=== PATIENT | male | born 1945 | race Caucasian/White ===

== ENCOUNTER → 2017-05-12 | Outpatient (CLI) | payer MEDICARE ==
[~2017-05-12] MED LIST: CARDURA1 MG PO; CEFTIN250 MG/5 M; CLONIDINE HCL0.1 MG PO; COLCRYS0.6 MG PO; CRESTOR10 MG PO; DILTIAZEM 24HR120 M1 PO; DOXAZOSIN MESYLA2 MG PO; ELIQUIS PO; FLOMAX0.4 MG PO; LEVOTHYROXINE88 MCG PO; LISINOPRIL2.5 MG PO; LORAZEPAM0.5 MG PO; MAXZIDE 37.5 M1 EACH PO; METOPROLOL TART50 MG PO; POTASSIUM CHLO10 ME1 PO; ZETIA10 MG PO; ZITHROMAX250 MG; ZOCOR20 MG PO
--- NOTE | 2017-05-20 04:25 | Polysomnography ---
DATE OF STUDY: May 12, 2017 SPLIT NIGHT POLYSOMNOGRAM This is a 71-year-old gentleman with insomnia, gasping awakenings, and cardiac history. Patient has a past medical history of atrial fibrillation, hypertension, dyslipidemia, hypothyroidism, gout, osteoarthritis, anxiety, spinal stenosis, asthma, and allergies. Current medications include diltiazem, doxazosin, potassium, levothyroxine, lorazepam, rosuvastatin, triamterene, hydrochlorothiazide, and Zetia. Patient with BMI of 32.9. [place] sleepiness scale score is 2. Patient presents for diagnostic polysomnogram that is further split into a positive airway pressure titration study. FINDINGS: During diagnostic half of this study, total sleep time of 138.5 minutes with sleep efficiency of 39.3%. Sleep onset latency was achieved in 23.5 minutes. REM not achieved until treatment portion this night. Intermittent snoring was noted. Patient's respiratory rate was noted to be in 30 breaths per minute range. A total of 68 hypopneas with no apnea was noted for apnea hypopnea index of 31.3 events per hour. These events were noted in both supine and side positions. Lowest oxygen saturation was 82% in this portion of the night. Multiple respiratory event related limb movements were noted. This study was split soon after discovering severe obstructive sleep apnea hypopnea syndrome. CPAP was initiated at 4 cm of water pressure and incrementally increased to 5, 6, 7, 8, 9, and 10 cm of water pressure. Patient woke up complaining that the pressure was too high. He was changed to BiPAP, 8/4 cm of water to try to get him to tolerate this better. The patient was fitted with a ResMed Air-fit N10 standard size mask. Using this BiPAP setting of 8/4 cm of water, the apnea hypopnea index of 5.7 events per hour, and the lowest oxygen saturation was 89%. With CPAP of 10 cm of water, the apnea hypopnea index was zero events per hour, and the lowest oxygen saturation was 81%. Due to difficulties tolerating the device and due to the shortened titration time provided by the split night protocol, this was a mildly suboptimal titration. During the entire night, periodic limb movement index of 49 events per hour was noted. The majority of the events were either respiratory related limb movements, although later there were also other periodic limb movements although they did not seem to the destroy or disrupt the sleep architecture or cause a lot of arousals, and were often of low amplitude as they were not seen on camera. Of note, the patient had 2 long awakenings that were initiated from REM sleep. EEG analysis was otherwise unremarkable. Single lead EKG analysis demonstrated an irregular baseline rhythm consistent with atrial fibrillation with heart rate often at 70s to 80s range at baseline. However, they were multiple intervening runs of tachycardia from 2-4 beats often at 110-150 beats per minute. At the end of this night, the patient stated that he had better sleep than his usual night. INTERPRETATION: This was an abnormal polysomnogram/split study due to the presence of: 1. Severe obstructive sleep apnea. This is supported by oxygen desaturations, snoring, and increased apnea hypopnea index. Multiple factors can be contributory, such as obesity, thyroid disease, and structural/obstructive abnormalities in upper airway. An evaluation and management of these factors associated with sleep apnea would be beneficial. 2. Positive airway pressure titration study. This overnight positive airway pressure titration study revealed significant improvement in terms of alleviation of obstructive sleep apnea at the settings utilized above. Of note, this study was limited due to shortened titration time provided by split night protocol, as well as intolerance of higher pressures. Consider to initiate BiPAP with IPAP of 8 cm of water and EPAP of 4 cm of water using a ResMed Air-fit N10 standard size nasal mask interface during sleep. As the patient desensitizes to this therapy, he can be referred back for a 2nd night titration study. Consideration may also be for oxygen overnight testing and device interrogation especially if there is a delay getting the patient back for a 2nd night titration study. 3. Baseline tachypnea. A cardiopulmonary evaluation is warranted. Of note, the patient follows with Dr. Zavala who is also a biosecurity officer. Clinical correlation is recommended. 4. History of insomnia. Clinical decision-making may also incorporate the two awakenings found to occur from REM sleep. Other issues should be investigated as well when evaluating the patient's insomnia, noting that there are other diagnoses found during this sleep test. 5. Periodic limb movements in sleep. Period limb movement index was 49 events per hour throughout this entire night. Most of these events are respiratory effort related limb movements or of low amplitude suggesting unclear importance. PLMS can be seen during PAP titration, and may subside after compliant use of CPAP or BiPAP. PLMD (PLMS disorder) can be associated with secondary conditions, such as restless leg syndrome, iron deficiency anemia, electrolyte imbalance, such as hypomagnesemia, peripheral neuropathy, use of medications that provoke neuroexcitation. If associated with clinical sleep disturbance or complaint of daytime fatigue after compliant use of BiPAP, further evaluation and management of these factors may be helpful. 6. Single lead EKG analysis demonstrates atrial fibrillation that included runs of tachycardia usually no longer than 4-5 beats at that time. As these runs consistently reoccurred, further cardiac optimization may be warranted. Clinical correlation is recommended here. MD ABHI Daley Certified in Sleep Medicine Job#: [id number] RI ALEJANDRO
== END ==
LOC: SLEEP 19:21
PROVIDERS: ATTEND Internal Medicine Critical Care Medicine
DX: G47.33 Obstructive sleep apnea (adult) (pediatric) (principal)
CPT/HCPCS: 95811

== ENCOUNTER → 2017-09-19 | Outpatient (CLI) | payer MEDICARE ==
--- NOTE | 2017-09-19 14:32 | Diagnostic Imaging Report ---
PROCEDURE: Frontal and lateral views of the chest. COMPARISON: [facility], , CHEST 2 VIEWS, 12/07/2016, 14:52. INDICATIONS: WHEEZING FINDINGS: Lines/tubes: None. Lungs: Left basilar subsegmental atelectasis. There is no evidence of pneumonia or pulmonary edema. Pleura: There is no pleural effusion or pneumothorax. Heart and mediastinum: The heart and the mediastinum are normal. Bones: No acute bony abnormality. Spondylosis of the lumbar spine. IMPRESSION: 1. Left basilar subsegmental atelectasis. Franklin Olivera M.D. Dictated by: Franklin Olivera M.D. on 09/19/2017 at 14:34 Electronically approved by: Franklin Olivera M.D. on 09/19/2017 at 14:34
== END ==
LOC: RAD 13:59
PROVIDERS: ATTEND Internal Medicine Critical Care Medicine
DX: J18.9 Pneumonia, unspecified organism (principal); J45.909 Unspecified asthma, uncomplicated; J30.9 Allergic rhinitis, unspecified; I48.91 Unspecified atrial fibrillation; R59.0 Localized enlarged lymph nodes; G47.33 Obstructive sleep apnea (adult) (pediatric)
CPT/HCPCS: 71046

== ENCOUNTER → 2017-10-07 | Outpatient (CLI) | payer MEDICARE ==
[~2017-10-07] MED LIST changes: +ALBUTEROL/IPRATROPIUM 3 ML NEB ONE
== END ==
LOC: RESP 12:58
PROVIDERS: ATTEND Internal Medicine Critical Care Medicine
DX: J45.909 Unspecified asthma, uncomplicated (principal); J18.9 Pneumonia, unspecified organism; J30.9 Allergic rhinitis, unspecified; I48.91 Unspecified atrial fibrillation; G47.00 Insomnia, unspecified; R59.0 Localized enlarged lymph nodes; G47.33 Obstructive sleep apnea (adult) (pediatric)

== ENCOUNTER → 2017-10-26 | Outpatient (CLI) | payer MEDICARE ==
[~2017-10-26] MED LIST changes: -ALBUTEROL/IPRATROPIUM 3 ML NEB ONE
[2017-10-28 22:16] LABS: ALPHA-1-ANTITRYPSIN 140 mg/dL (90-200)
== END ==
LOC: LAB 15:24
PROVIDERS: ATTEND Internal Medicine Critical Care Medicine
DX: J18.9 Pneumonia, unspecified organism (principal); J45.909 Unspecified asthma, uncomplicated; J30.9 Allergic rhinitis, unspecified; R59.0 Localized enlarged lymph nodes; I48.91 Unspecified atrial fibrillation; K21.9 Gastro-esophageal reflux disease without esophagitis; G47.00 Insomnia, unspecified; G47.33 Obstructive sleep apnea (adult) (pediatric)
CPT/HCPCS: 82103; 82785

== ENCOUNTER → 2017-11-10 | Outpatient (CLI) | payer MEDICARE ==
--- NOTE | 2017-11-10 16:11 | Diagnostic Imaging Report ---
PROCEDURE: CT CHEST WITHOUT CONTRAST CT scan of the chest WITHOUT intravenous contrast, using standard protocol. TECHNIQUE: The chest was scanned utilizing a multidetector helical scanner from the apex to the level of the adrenal glands. No IV contrast was administered per physician's request. Coronal and sagittal multiplanar reformations were obtained. COMPARISON: [facility], CT, CT CHEST WO, 04/19/2017, 11:35. INDICATIONS: ASTHMA FINDINGS: Lines/tubes: None. Lungs and Airways: Stable linear scarring in the lingula (series 3, image 85, and subsegmental atelectatic changes in the anterior left lower lobe (series 3, image 88, and sagittal image 120). Lungs are otherwise clear, without consolidation, masses, or nodules. Airways are clear, without endobronchial lesions. Pleura: No effusion, or pneumothorax. Heart and mediastinum: Thyroid is unremarkable. Heart size is normal. No pericardial effusion. Atherosclerotic calcification of the coronary arteries and thoracic aorta. Aorta is non-aneurysmal. Main pulmonary artery is normal in caliber. Lymph nodes: Stable mildly enlarged right lower paratracheal lymph node (series 2 image 49) with normal fatty hilum. No other mediastinal or any hilar or axillary adenopathy. Abdomen: Limited views of the upper abdomen show no abnormality within the visualized spleen, pancreas, or left kidney. Diffuse hepatic steatosis. Stable 1.9 x 1.3 cm simple cyst in hepatic segment II (series 2 image 103) and 1.2 x 1.1 cm fluid density simple cyst in hepatic segment (series 2, image 123). Partially visualized 2.1 x 2.2 cm simple cyst in hepatic segment IVB (series 2 image 123). Left adrenal gland is unremarkable. Stable 1.4 x 1.5 cm right adrenal gland myelolipoma. Bones: A no acute bony abnormalities. Multilevel degenerative disc changes in the thoracic spine. No aggressive lytic lesions. Soft tissues are grossly unremarkable. IMPRESSION: 1. stable linear scarring in the lingula and subsegmental atelectasis in the anterior left lower lobe. Otherwise, the lungs are clear. 2. Diffuse hepatic steatosis. Stable hepatic simple cysts. 3. Stable 1.5 cm right adrenal gland myelolipoma. Dipesh Crain M.D. Dictated by: Dipesh Crain M.D. on 11/10/2017 at 16:15 Electronically approved by: Dipesh Crain M.D. on 11/10/2017 at 16:15
== END ==
LOC: CT 14:46
PROVIDERS: ATTEND Internal Medicine Critical Care Medicine
DX: J18.9 Pneumonia, unspecified organism (principal); J45.909 Unspecified asthma, uncomplicated; J30.9 Allergic rhinitis, unspecified; I48.91 Unspecified atrial fibrillation; K21.9 Gastro-esophageal reflux disease without esophagitis; G47.00 Insomnia, unspecified; R59.0 Localized enlarged lymph nodes
CPT/HCPCS: 71250

== ENCOUNTER 2017-11-11 12:47 | Emergency (ER) | payer MEDICARE ==
[~2017-11-11] VITALS: Ht 170.2 cm; Wt 98.2 kg
== END 2017-11-11 13:25 | disposition home or self-care (01) ==
LOC: FSED 12:47
DX: M25.522 Pain in left elbow (principal); M25.521 Pain in right elbow; M70.22 Olecranon bursitis, left elbow; M70.21 Olecranon bursitis, right elbow; L03.114 Cellulitis of left upper limb; L03.113 Cellulitis of right upper limb; Y93.89 Activity, other specified; Y92.002 Bathroom of unspecified non-institutional (private) residence as the place of occurrence of the external cause; I10 Essential (primary) hypertension; I48.91 Unspecified atrial fibrillation; E03.9 Hypothyroidism, unspecified; E78.5 Hyperlipidemia, unspecified
CPT/HCPCS: 99282